=== PATIENT | female | born 1995 | race Caucasian/White ===

== ENCOUNTER 2017-09-23 13:29 | Emergency (ER) | payer OTHER ==
[2017-09-23 13:44] VITALS: TEMP 98.1
--- NOTE | 2017-09-23 13:55 | ED PDOC ---
HPI: CCC, URI, Sore Throat Time Seen by Provider: 09/23/17 13:45 Chief Complaint (Nursing): Flu-like Symptoms Chief Complaint (Provider): Cough, Vomiting History Per: Patient History/Exam Limitations: no limitations Onset/Duration Of Symptoms: Days (x 4) Current Symptoms Are (Timing): Still Present Additional Complaint(s): Mary is a 22 y/o female with a past history of gastritis who presents to the ED complaining of coughing with post-tussive vomiting since Wednesday. Patient states she has vomited approx. 7 times since Wednesday, and also complains of nausea, decreased appetite, and mild throat pain. She has taken Robotussin PM with some relief of cough. She has been tolerating liquids and solids despite intermittent emesis. Patient states she has been drinking a lot of water and pedialyte daily. Patient was seen this afternoon at [facility] where she was tested for strep and flu and both were negative. Patient was instructed by Urgent care to come to ED due to dehydration. PMD: [facility] Past Medical History Reviewed: Historical Data, Nursing Documentation, Vital Signs Vital Signs: Last Vital Signs Temp 98.1 F 09/23/17 13:39 Pulse 68 09/23/17 15:48 Resp 18 09/23/17 15:48 BP 138/74 09/23/17 15:48 Pulse Ox 98 09/23/17 15:48 - Medical History PMH: Anemia, Gastritis - Surgical History Surgical History: Appendectomy Other surgeries: [place] teeth removal - Family History Family History: States: No Known Family Hx - Living Arrangements Living Arrangements: With Family - Social History Current smoker - smoking cessation education provided: No Ex-Smoker (has not smoked in the last 12 months): No Alcohol: Occasional Drugs: Denies - Home Medications Home Medications: Ambulatory Orders Medication Instructions Recorded Diphenhydramine Hydrochlorid 50 mg PO Q6H #20 cap 09/16/15 [Benadryl] Famotidine [Pepcid] 20 mg PO BID #20 tab 09/16/15 Prednisone 50 mg PO DAILY #4 tab 09/16/15 - Allergies Allergies/Adverse Reactions: Allergies Allergy/AdvReac Type Severity Reaction Status Date / Time No Known Allergies Allergy Verified 09/23/17 13:39 Review of Systems ROS Statement: Except As Marked, All Systems Reviewed And Found Negative Constitutional: Negative for: Fever ENT: Positive for: Throat Pain (mild) Respiratory: Positive for: Cough Gastrointestinal: Positive for: Nausea, Vomiting, Other (loss of appetite) Physical Exam - Reviewed Nursing Documentation Reviewed: Yes Vital Signs Reviewed: Yes - Physical Exam Appears: Positive for: Well, Non-toxic, No Acute Distress Head Exam: Positive for: ATRAUMATIC, NORMAL INSPECTION, NORMOCEPHALIC Skin: Positive for: Normal Color. Negative for: Rash Eye Exam: Positive for: Normal appearance, EOMI, PERRL. Negative for: Nystagmus ENT: Positive for: Normal ENT Inspection Neck: Positive for: Normal, Painless ROM, Supple Cardiovascular/Chest: Positive for: Regular Rate, Rhythm. Negative for: Murmur Respiratory: Positive for: Decreased Breath Sounds Gastrointestinal/Abdominal: Positive for: Soft. Negative for: Tenderness, Distended, Guarding, Rebound Back: Negative for: L CVA Tenderness, R CVA Tenderness Extremity: Positive for: Normal ROM. Negative for: Pedal Edema, Deformity Neurologic/Psych: Positive for: Alert, Oriented - Laboratory Results Urine POC: Negative (test refused in ED, she was seen just prior to arrival at urgent care and test was negative) - ECG O2 Sat by Pulse Oximetry: 100 (RA) Pulse Ox Interpretation: Normal Medical Decision Making Medical Decision Makin22 year old with cough and vomiting Patient was seen at urgent care prior to arrival and was tested for flu and strep and tests came back negative. Patient states she was sent here for IVF but patient is not sure if she wants the IVF due to cost. Rx for tessalon perles, zithromax and zofran were called into patient's pharmacy already. Patient was offered chest x-ray but she refused, again due to cost concern. Plan: IVF bolus - patient agreed to fluid bolus only Patient was instructed to take all medications prescribed as directed and follow -up with her primary doctor. Repeat BP prior to d/c: 138/74 Disposition - Clinical Impression Clinical Impression: Bronchitis - Patient ED Disposition Is Patient to be Admitted: No Counseled Patient/Family Regarding: Diagnosis, Need For Followup - Disposition Referrals: [facility] [Outside] Disposition: Routine/Home Disposition Time: 14:17 Condition: STABLE Additional Instructions: Take prescribed med as directed. Drink plenty of fluids. Follow up with primary care doctor in 1-2 days. Instructions: Acute Bronchitis (ED) Forms: [facility] ([place])
[2017-09-23] MEDS ORDERED: Sodium Chloride 0.9% 1,000 ML IV STA (14:10)
[2017-09-23 15:48] VITALS: BP 138/74; PULSE 68; RESP 18
[2017-09-23 15:52] VITALS: O2SAT 100
== END 2017-09-23 16:00 | disposition home or self-care (01) ==
LOC: H.ER 13:29
DX: J40 Bronchitis, not specified as acute or chronic (principal); Z87.891 Personal history of nicotine dependence
CPT/HCPCS: 96360; 99285; J7040